=== PATIENT | female | born 1980 | race Caucasian/White ===

== ENCOUNTER 2021-11-22 00:41 | Emergency (ER) | payer MEDICAID ==
[~2021-11-22] VITALS: Ht 177.8 cm; Wt 169.2 kg
[~2021-11-22 00:41] MED LIST: FENO5TAB PO; HYDR-4833; IBUP600T27; MECL25TA18 PO
[2021-11-22 00:44] VITALS: BP 155/94
== END 2021-11-22 02:33 | disposition left against medical advice (07) ==
LOC: ER 00:41
DX: M79.89 Other specified soft tissue disorders (principal); Z53.21 Procedure and treatment not carried out due to patient leaving prior to being seen by health care provider